=== PATIENT | female | born 1985 | race Caucasian/White ===

== ENCOUNTER 2017-06-13 16:42 | Emergency (ER) | payer SELFPAY ==
[~2017-06-13] VITALS: Wt 75.3 kg
[~2017-06-13 16:42] MED LIST: ACET500C5 PO; IBUP-1542 PO; PREN1TAB31 PO
== END 2017-06-13 19:32 | disposition left against medical advice (07) ==
LOC: FTE 16:42
DX: Z53.21 Procedure and treatment not carried out due to patient leaving prior to being seen by health care provider (principal)

== ENCOUNTER 2017-11-08 13:43 | Inpatient (IN) | END 2017-11-10 19:04 | disposition home or self-care (01) | DRG 766 ==

== ENCOUNTER 2018-09-29 05:38 | Day surgery (SDC) | payer OTHER ==
[~2018-09-29] VITALS: Ht 167.6 cm; Wt 73.8 kg
[2018-09-29] VITALS (13 sets, daily range): BP systolic 98–128; BP diastolic 58–68; PULSE 70–92; RESP 11–18; Ht 167.6 cm; Wt 73.8 kg
[~2018-09-29 05:38] MED LIST changes: +IBUP-1544 PO
[2018-09-29] MEDS ORDERED: BUPIVACAINE 0.25% (MPF) 30 ML INJ ONE (06:53)
[2018-09-29] MEDS ORDERED: ROCURONIUM 50 MG INJ ONE (07:00)
--- NOTE | 2018-09-29 07:36 | PREAC ---
Date/Time of Note Date/Time of Note DATE: 09/29/18 TIME: 07:33 Anesthesia Eval and Record Evaluation Time Pre-Procedure Interview DATE: 09/29/18 TIME: 07:33 Age 33 Sex female NPO: 8 hrs Preoperative diagnosis gallstones Planned procedure laproscopic cholecystectomy Past Medical History Past Medical History: None Surgery & Anesthesia Issues No known issue Meds Anticoagulation: No Beta Umu within 24 hr: No Reason Beta Umu not given: Pt. not on B-Umu Active Scripts Ibuprofen* (Ibuprofen*) 800 Mg Tablet, 800 MG PO Q8, #60 TAB 0 Refills Prov:ALAYNA FRITZ MD 11/10/17 Ibuprofen* (Motrin*) 600 Mg Tab, 600 MG PO Q6, #30 TAB Prov:Jacquie Tolliver PA-C 06/03/16 Acetaminophen* (Tylophen*) 500 Mg Capsule, 1 CAP PO Q6H PRN for PAIN AND OR ELEVATED TEMP, #15 CAP Prov:NOREEN FLORES MD 04/16/16 Vits #90-Iron Fum-FA ( Formula) 1 Each Tablet, 1 TAB PO DAILY, #90 TAB Prov:NOREEN FLORES MD 04/16/16 Current Medications Cefazolin Sodium/ Dextrose 50 ml @ 100 mls/hr PRE-OP ONCE IVPB ; Start 09/29/18 at 11:00; Stop 09/29/18 at 11:29 Sodium Chloride 1,000 ml @ 75 mls/hr [id number] ONCE IV ; Start 09/29/18 at 11:00; Stop 09/30/18 at 00:19 Meds reviewed: Yes Allergies Coded Allergies: No Known Allergy (Unverified , 06/01/16) Allergies Reviewed: Yes Labs/Studies Labs Reviewed: Reviewed by anesthesiologist test: Negative Pre-procedure Exam Last vitals Vital Signs Date Temp Pulse Resp B/P (MAP) Pulse Ox O2 O2 Flow FiO2 Time Delivery Rate 09/29/18 98.1 72 18 98/66 (77) 99 Room Air 06:59 Airway: Adequate mouth opening, Adequate thyromental dist Mallampati: Mallampati II Teeth: Normal Lung: Normal Heart: Normal ASA Physical Status ASA physical status: 1 Emergency: None (one front tooth completely detached but patient used glue to place it back into place. scheduled for dentistry after surgery. tooth not coming out per patient. ) Pre-operative Attestations Prior to commencing anesthesia and surgery, the patient was re-evaluated, there was verification of: *The patient's identity *The results of appropriate recent lab work and preoperative vital signs *The above evaluation not changing prior to induction *Anesthetic plan, risk benefits, alternative and complications discussed with patient/family; questions answered; patient/family understands, accepts and wishes to proceed. OLIVIA CHRISTIANSON DO Sep 29, 2018 07:36
[2018-09-29] MEDS ORDERED: HYDROmorphONE 2 MG/ML SYG ONE (07:59)
[2018-09-29] MEDS ORDERED: PROPOFOL 20 ML ONE (07:59)
[2018-09-29] MEDS ORDERED: LIDOCAINE 1% (MDV) 20 ML INJ ONE (08:00)
[2018-09-29] MEDS ORDERED: HYDROmorphONE 1 MG/5 ML IV SYRINGE IV PRN ×2 (08:00)
[2018-09-29] MEDS ORDERED: ROPIVACAINE 0.5 % 30 ML VIAL ONE (08:06)
[2018-09-29] MEDS ORDERED: DEXAMETHASONE 4 MG/ML 5 ML INJ ONE ×2 (08:06→08:16)
[2018-09-29] MEDS ORDERED: ONDANSETRON 4 MG INJ ONE (08:16)
[2018-09-29] MEDS ORDERED: CEFAZOLIN 1 GM INJ ONE (08:16)
[2018-09-29] MEDS ORDERED: GLYCOPYRROLATE 0.4 MG INJ ONE ×2 (08:40→08:43)
[2018-09-29] MEDS ORDERED: NEOSTIGMINE 3 MG/3 ML SYRINGE ONE (08:40)
--- NOTE | 2018-09-29 08:58 | PAC ---
Date/Time of Note Date/Time of Note DATE: 09/29/18 TIME: 08:57 Post-Anesthesia Notes Post-Anesthesia Note Last documented vital signs Vital Signs Date Temp Pulse Resp B/P (MAP) Pulse Ox O2 O2 Flow FiO2 Time Delivery Rate 09/29/18 99.2 75 18 115/65 100 0857 09/29/18 72 18 98/66 (77) 99 Room Air 06:59 Activity: WNL Respiratory function: WNL Cardiovascular function: WNL Mental status: Baseline Pain reasonably controlled: Yes Hydration appropriate: Yes Nausea/Vomiting absent: Yes OLIVIA CHRISTIANSON DO Sep 29, 2018 08:58
--- NOTE | 2018-09-29 08:58 | OPR ---
Date/Time of Note Date/Time of Note DATE: 09/29/18 TIME: 08:47 Operative Report Procedure Date: Sep 29, 2018 Preoperative Diagnosis symptomatic gallstones Postoperative Diagnosis same Operation/Procedure Performed laparoscopic cholecystectomy Surgeon see signature line [employer] Anesthesia Type: general Estimated Blood Loss: 0 - 10 ml's Transfusion none Specimen gallbladder Grafts/Implants none Complications none Pt Condition Post Procedure: stable Indications This is a 33-year-old female with sent [facility]. She requests surgical excision of her gallbladder. Risks alternatives benefits and percent were discussed with the patient. Patient expressed understanding and consents to the operation. Procedure Description Patient is here to the OR and prepped and draped using sterile fashion. Surgical time was performed. IV antibiotic given. Infraumbilical transverse incision was made at the 15 blade. Dissection with cautery turned onto the fascia. Fascia was grasped with Kossuth's and divided with curved Villarreal scissors. Overdiuresis was placed into the fascia. Ibanez trocar was introduced. Pneumoperitoneum was established to admit epigastric 12 mm optical trocar was placed in neutral position. Right upper quadrant upper flank 5 mm optical trocar was placed under direct visualization. On initial inspection the gallbladder appears hydropic and distended. The gallbladder is grasped the fundus and traction lateral cephalad direction. Grace graspers were used to dissect out the cystic duct and cystic artery. The critical view was established. The cystic duct was divided with 2 clips proximally clipped distally and the divisions performed lap scopic scissors. Cystic artery was divided in similar fashion with 3 clips proximally clipped distal and the division to perform a lap scopic scissors. The gallbladder was taken of the gallbladder bed. Good hemostasis established in the surgical bed. The gallbladder is retrieved in an Endo Catch bag. Minimal suction irrigation is used. Ports were removed under direct visualization. Overdiuresis was tied down. Skin was closed using skin vimal. A tap block was provided by the anesthesia was. Dry dressings were applied. Le BOSTON Sep 29, 2018 08:57
[2018-09-29] MEDS ORDERED: HYDROCODONE/APAP (5/325) TAB PO ONE (09:00)
[2018-09-29] MEDS ORDERED: SOD CHLORIDE 0.9% 1,000 ML IV ONE (11:00)
[2018-09-29] MEDS ORDERED: CEFAZOLIN 2 GM/50 ML (PMX) 50 ML IVPB ONE (11:00)
== END 2018-09-29 12:10 | disposition home or self-care (01) ==
LOC: SDS 05:38
PROVIDERS: ATTEND Surgery
DX: K80.10 Calculus of gallbladder with chronic cholecystitis without obstruction (principal)
CPT/HCPCS: 47562; 88304; J0690; J1100; J1170; J2405; J2710; J2795; Z7512; Z7610